=== PATIENT | male | born 1965 | race Caucasian/White ===

== ENCOUNTER 2019-05-27 13:28 | Inpatient (IN) | payer MEDICAID, OTHER ==
[~2019-05-27] VITALS: Ht 180.3 cm; Wt 117.9 kg
[~2019-05-27 13:28] MED LIST: GLIP10TA3 PO; LANTUS INSULIN SQ; METF100028 PO; [UNRECOGNIZED DRUG - REMARK]
--- NOTE | 2019-05-27 13:31 | NUR ---
Patient ambulated to bed 11. RN evaluating patient at bedside.
--- NOTE | 2019-05-27 13:35 | NUR ---
ekg performed at bedside
[2019-05-27 13:40] VITALS: BP 136/66
--- NOTE | 2019-05-27 13:40 | NUR ---
PT BIB SELF REFERRED BY PCP FOR SOB AND CP. PT REPORTS SHARP INTERMETENT LT SIDED CP AT 610. HEART RRR. ASCITES PRESENT. PT REPORTS SOB STATING "IT'S LIKE IM BLOATED AND HARD TO CATCH BREATH" AND HAS GAINED 20 POUNDS IN LAST 2 MONTHS. LUNG SOUNDS CLEAR, RR EVEN, NON-LABORED, O2 SAT AT 100% ON ROOM AIR, CAP REFIL <2 SEC. EKG DONE, VSS, ER MD TO SEE PT. MEDHX:CHIRROSIS, DM, HTN
[2019-05-27] MEDS ORDERED: NACL 0.9% 1,000 ML IV ONE (13:55)
[2019-05-27] MEDS ORDERED: PANTOPRAZOLE 40 MG INJ VIAL IVP ONE (13:55)
--- NOTE | 2019-05-27 14:00 | NUR ---
Dr. Phillips evaluating patient at bedside.
--- NOTE | 2019-05-27 14:03 | NUR ---
claims technician at bedside.
[2019-05-27] MEDS ORDERED: KETOROLAC 30 MG/ML VIAL IVP ONE (14:05)
[2019-05-27 14:30] LABS: HEMOGLOBIN 9.2 g/dL (12.0-18.0); PLATELET COUNT (AUTO) 28 K/uL (140-450); WHITE BLOOD COUNT (AUTO) 2.2 K/uL (4.8-10.8)
[2019-05-27 14:36] LABS: ANION GAP 8.6 (8-16); CARBON DIOXIDE 29.7 mmol/L (21-32); CREATININE 1.4 mg/dL (0.7-1.3); HEMATOCRIT 26.2 % (36-52); MEAN CORPUSCULAR HEMOGLOBIN 28 pg (27-31); MEAN CORPUSCULAR HGB CONC 35 g/dL (33-37); MEAN CORPUSCULAR VOLUME 78.3 fL (80-94); POTASSIUM 5.3 mmol/L (3.5-5.1); RED BLOOD CELL COUNT(AUTO) 3.34 MIL/uL (4.20-6.10); RED CELL DISTRIBUTION WIDTH 15.3 % (11.6-13.7)
[2019-05-27 14:42] LABS: TOTAL BILIRUBIN 0.7 mg/dL (0.0-1.0)
[2019-05-27 14:54] LABS: LYMPHOCYTES % (MANUAL) 14 % (20-46); MONOCYTES % (MANUAL) 2 % (5-12)
[2019-05-27 14:55] LABS: EOSINOPHILS % (MANUAL) 2 % (0-4)
[2019-05-27] MEDS ORDERED: ASPIRIN 81 MG TAB.CHEW PO ONE (15:00)
[2019-05-27] MEDS ORDERED: SODIUM POLYSTYRENE 15 GM/60 ML UDBTL PO ONE (15:05)
[2019-05-27] MEDS: NACL 0.9% 1,000 ML IV SCH (15:06)
[2019-05-27] MEDS ORDERED: ACETAMINOPHEN 325 MG TAB PO PRN (15:10)
[2019-05-27] MEDS ORDERED: ONDANSETRON 4 MG/2 ML VIAL IM/IVP PRN (15:10)
[2019-05-27] MEDS ORDERED: MORPHINE SULFATE 2 MG/ML SYR IVP PRN (15:10)
[2019-05-27] MEDS ORDERED: LISI10TA11 PO (15:32)
[2019-05-27] MEDS ORDERED: FERR-252 PO (15:32)
[2019-05-27 15:35] VITALS: BP 135/53
--- NOTE | 2019-05-27 15:35 | NUR ---
Patient will be admitted to care of [facility]. Admited to TELE W/ VSS. Will go to [id number]. Belongings list completed. Report to JOY COLLINS RN.
--- NOTE | 2019-05-27 15:35 | NUR ---
RECEIVED BEDSIDE REPORT FROM ENT PHYSICIAN BOO. PT STABLE, AWAKE, ALERT AND ORIENTED X4. NO SIGNS OF DISTRESS NOTED. DENIES PAIN OR SOB. NO REDNESS, SWELLING, OR INFLAMMATION NOTED ON IV SITE. CALL SIDDIQUI WITHIN REACH. BED IN LOWEST POSITION. SAFETY MEASURES IN PLACE. PLAN OF CARE REVIEWED.
[2019-05-27] MEDS ORDERED: DEXTROSE 50% 50 ML SYR IVP PRN (15:40)
[2019-05-27] MEDS ORDERED: NITROGLYCERIN 0.4 MG TAB SL PRN (15:40)
[2019-05-27 15:46] LABS: MAGNESIUM 1.9 mg/dL (1.8-2.4); PHOSPHORUS 4.1 mg/dL (2.5-4.9); THYROID STIMULATING HORMONE 3.3 uIU/mL (0.34-3.74)
[2019-05-27] MEDS: BLOOD GLUCOSE MONITORING 1 DEV DEV FS SCH ×2 (17:06→21:40)
[2019-05-27] MEDS: FERROUS SULFATE 325 MG TABEC PO SCH (17:06)
--- NOTE | 2019-05-27 17:11 | NUR ---
ADMINISTERED SCHEDULED MEDICATION, PT TOLERATED WELL. DR KEN AT THE BEDSIDE.
[2019-05-27] MEDS ORDERED: PRED15SY34 OP (17:51)
[2019-05-27] MEDS ORDERED: GABA800T6 PO (18:59)
--- NOTE | 2019-05-27 19:20 | NUR ---
RECEIVED BEDSIDE REPORT FROM DAY SHIFT NURSE. PATIENT IS AWAKE, ALERT, AND COOPERATIVE. RESPIRATION EVEN UNLABORED ON ROOM AIR. NO DISTRESS NOTED. SKIN IS WARM AND DRY. DENIES PAIN. PLAN OF CARE WAS DISCUSSED. ALL SAFETY MEASURES IN PLACE. BED IS AT LOW POSITION. CALL LIGHT WITHIN REACH AND VERBALIZES ITS USE. WILL CONTINUE TO MONITOR.
--- NOTE | 2019-05-27 19:29 | NUR ---
ENDORSED PT TO RN HECTOR FOR CONTINUITY OF CARE. PT STABLE.
[2019-05-27 20:00] VITALS: BP 132/61
--- NOTE | 2019-05-27 20:00 | NUR ---
INITIAL ASSESSMENT DONE. VITALS WERE TAKEN. NO DISTRESS NOTED. WILL CONTINUE TO MONITOR.
--- NOTE | 2019-05-27 20:30 | NUR ---
PATIENT IV INFILTRATED. NO ACTIVE BLEEDING SEEN. CANNULA INTACT. WILL INSERT A NEW ONE.
--- NOTE | 2019-05-27 21:00 | NUR ---
ALL SCHEDULED MEDS WERE GIVEN PER ORDER. NO ASE NOTED. WILL CONTINUE TO MONITOR.
[2019-05-27 21:32] LABS: ANION GAP 9.9 (8-16); CARBON DIOXIDE 27.3 mmol/L (21-32); CREATININE 1.5 mg/dL (0.7-1.3); POTASSIUM 5.2 mmol/L (3.5-5.1)
[2019-05-27] MEDS: SIMVASTATIN 20 MG TAB PO SCH (21:40)
[2019-05-27] MEDS: INSULIN LISPRO SLIDING SCALE 100 UNITS/ML VIAL SUBQ PRN (21:54)
--- NOTE | 2019-05-27 21:56 | NUR ---
PATIENT WANTS TO TAKE HIS GABAPENTIN MEDS THAT HE MISSED THIS MORNING. SPOKE TO DR. BREWER REGARDING PATIENT REQUEST. DR. BREWER AGREED AND INSTRUCT TO GIVE THE MORNING DOSE FOR TONIGHT. WILL ADMINISTERED 800MG GABAPENTIN.
[2019-05-27] MEDS ORDERED: GABAPENTIN 100 MG CAP ONE (22:02)
--- NOTE | 2019-05-27 22:30 | NUR ---
PATIENT IN BED WATCHING TV RESPIRATION EVEN UNLABORED ON ROOM AIR. NO DISTRESS NOTED. WILL CONTINUE TO MONITOR.
[2019-05-28] VITALS: BP 132/72
--- NOTE | 2019-05-28 | NUR ---
VITALS WERE TAKEN. PATIENT IN STABLE CONDITION. NO DISTRESS NOTED. WILL CONTINUE TO MONITOR.
[2019-05-28] MEDS ORDERED: MELATONIN 3 MG TAB PO PRN (01:35)
[2019-05-28] MEDS ORDERED: MELATONIN 3 MG TAB ONE (02:00)
--- NOTE | 2019-05-28 02:05 | NUR ---
PATIENT COULDNT FALL ASLEEP AND ASKING FOR SLEEPING AID. TALK TO DR BREWER (RESIDENT) REGARDING THE SITUATION. DR. BREWER ORDER IN 3MG MELATONIN. ADMINISTERED THE MEDS PER ORDER. WILL CONTINUE TO MONITOR.
--- NOTE | 2019-05-28 02:30 | NUR ---
INSERTED NEW IV 22G RIGHT HAND AND TOLERATING IT WELL. WILL CONTINUE TO MONITOR.
[2019-05-28 04:00] VITALS: BP 144/81
--- NOTE | 2019-05-28 04:00 | NUR ---
VITALS WERE TAKEN. PATIENT IN STABLE CONDITION. NO DISTRESS NOTED. WILL CONTINUE TO MONITOR.
[2019-05-28] MEDS: BLOOD GLUCOSE MONITORING 1 DEV DEV FS SCH ×4 (06:04→21:00)
[2019-05-28] MEDS: INSULIN LISPRO SLIDING SCALE 100 UNITS/ML VIAL SUBQ PRN ×3 (06:04→22:25)
[2019-05-28 06:07] LABS: T4 (THYROXINE) 5.8 ug/dL (4.5-12.0)
[2019-05-28] MEDS: NACL 0.9% 1,000 ML IV SCH (06:58)
--- NOTE | 2019-05-28 07:10 | NUR ---
ENDORSED PATIENT TO DAY SHIFT NURSE FOR CONTINUITY OF CARE. PATIENT IN STABLE CONDITION
--- NOTE | 2019-05-28 07:48 | NUR ---
RECEIVED BED SIDE REPORT FROM CRIME SPECIALIST RN. PT A/O X4, RIGHT HAND 22G RUNNING NS AT 60. PT DENIES CHEST PAIN. ULTRASOUND OF ABDOMEN TO BE DONE TODAY. PT ON NEUTROPENIC PRECAUTIONS. VS STABLE, ON RA IN NO RESP DISTRESS. SKIN INTACT. DENIES PAIN. WILL CONTINUE TO MONITOR.
[2019-05-28 07:49] LABS: CARBON DIOXIDE 27.6 mmol/L (21-32); CREATININE 1.5 mg/dL (0.7-1.3); POTASSIUM 4.6 mmol/L (3.5-5.1)
[2019-05-28 07:54] LABS: CHOL/HDL RATIO 2.3 (1-4.5)
[2019-05-28 07:56] LABS: HEMATOCRIT 24.3 % (36-52); HEMOGLOBIN 8.4 g/dL (12.0-18.0); MEAN CORPUSCULAR HEMOGLOBIN 28 pg (27-31); MEAN CORPUSCULAR HGB CONC 35 g/dL (33-37); MEAN CORPUSCULAR VOLUME 79.1 fL (80-94); PLATELET COUNT (AUTO) 26 K/uL (140-450); RED BLOOD CELL COUNT(AUTO) 3.07 MIL/uL (4.20-6.10)
[2019-05-28 08:05] LABS: MAGNESIUM 2.1 mg/dL (1.8-2.4); PHOSPHORUS 4.4 mg/dL (2.5-4.9)
--- NOTE | 2019-05-28 08:07 | NUR ---
PATIENT HAS BEEN SCREENED AND CATEGORIZED MODERATE NUTRITION RISK. PATIENT WILL BE SEEN WITHIN 3-5 DAYS OF ADMISSION. 05/30/19VIR[address]
[2019-05-28 08:20] LABS: PROTHROMBIN TIME 10.6 secs (10.8-13.4)
[2019-05-28 08:31] LABS: ALBUMIN 2.6 g/dL (3.4-5.0); BILIRUBIN,DIRECT 0.1 mg/dL (0.0-0.3); TOTAL BILIRUBIN 0.5 mg/dL (0.0-1.0)
--- NOTE | 2019-05-28 08:34 | NUR ---
CALLED RESIDENTS TO CONFIRM IF THEY WANT ME TO GIVE LANTUS 55 UNITS. LAST BLOOD SUGAR CHECKED AND WAS 157. RESIDENT SAID TO HOLD LANTUS.
[2019-05-28 08:39] LABS: WHITE BLOOD COUNT (AUTO) 1.7 K/uL (4.8-10.8)
[2019-05-28 08:40] LABS: LYMPHOCYTES % (MANUAL) 19 % (20-46); MONOCYTES % (MANUAL) 4 % (5-12)
[2019-05-28] MEDS ORDERED: GABAPENTIN 300 MG CAP ONE (08:53)
[2019-05-28] MEDS: ASPIRIN 81 MG TAB.CHEW PO SCH (08:58)
[2019-05-28] MEDS: FERROUS SULFATE 325 MG TABEC PO SCH ×3 (08:58→16:52)
[2019-05-28] MEDS: LISINOPRIL 10 MG TAB PO SCH (08:59)
[2019-05-28] MEDS: GABAPENTIN 200 MG, GABAPENTIN 600 MG PO SCH ×6 (09:00→16:52)
[2019-05-28] MEDS ORDERED: ASPIRIN 81 MG TAB.CHEW PO SCH (09:00)
[2019-05-28] MEDS ORDERED: INSULIN LANTUS 100 UNITS/ML 10 ML VIAL SUBQ SCH (09:00)
[2019-05-28] MEDS ORDERED: GABAPENTIN 100 MG CAP PO SCH (09:00)
[2019-05-28] MEDS: prednisoLONE 1% OP 5 ML BTL LEFT EYE SCH ×4 (09:01→20:57)
--- NOTE | 2019-05-28 09:18 | NUR ---
GAVE PT AM MEDS. URINE SPECIMEN CUP AT BEDSIDE. WILL CONTINUE TO MONITOR.
[2019-05-28 10:29] VITALS: BP 133/70
[2019-05-28 11:07] LABS: APPEARANCE,URINE CLEAR (CLEAR); BILIRUBIN,URINE NEGATIVE (NEGATIVE); BLOOD, URINE NEGATIVE (NEGATIVE); COLOR,URINE YELLOW (YELLOW); LEUKOCYTE ESTERASE ,URINE NEGATIVE (NEGATIVE); NITRITE, URINE NEGATIVE (NEGATIVE); UGLUCOSE TRACE (NEGATIVE)
[2019-05-28 11:13] LABS: BARBITURATE, URINE NEG. ng/ml (NEG <=200); BENZODIAZEPINE, URINE NEG. ng/mL (NEG <=200); CANNABINOID, URINE NEG. ng/mL (NEG <=50); COCAINE, URINE NEG. ng/mL (NEG <=300); OPIATE, URINE NEG. ng/mL (NEG <=2000); PHENCYCLIDINE SCREEN,URINE NEG. ng/mL (NEG <=25)
--- NOTE | 2019-05-28 12:21 | NUR ---
SUGAR 231. PT NPO CURRENTLY D/T US ABDOMEN TO BE COMPLETED. WILL NOT GIVE INSULIN COVERAGE AT THIS TIME.
--- NOTE | 2019-05-28 13:56 | NUR ---
DISCHARGE PLANNING [facility] Patient: Grady Michelle : 1965 Age/Sex: 54/M Unit#: [id number] Room/Bed: 106/A User: Yeimi Boone CM Date: 05/28/19 13:45 Type: CM: Discharge Planning Basic Screen: Yes Name: Yuliet Sparrow Relationship: Significant other Pre-Admission Living Arrangements: Other Other: Home Prior ADL Independent Healthcare Decision Maker: Patient Advance Directive No Physician Orders for Life Sustaining Treatment Form No Patient/Family Have Educational Needs No Information Taught: Advance Directive Instruction Given: Overall info for AD Person Taught: Patient Teaching Tools: Verbal Factors Affecting Learning: None Participation Level: Active Evaluation: Demonstrate Understanding Discipline: Case Mgt/Social Svcs Tentative Discharge Plan/Destination: No Needs Identified Will require assistance post discharge: No Referred to Social Media Marketing Manager: No Tentative Discharge Plan Summary: Pt to return home with family. Patient reports he lives with significant other. Pt receives medical care from [facility]. Pt was recently diagnosed with depression by a psychiatrist in [place]. Pt unable to recall the name. Pt stated has an appointment to follow-up fpr medication and counseling. Pt indicated he currently doesn't smoke, drink or use any drugs. Pt quit about 4 years ago. No needs identified. Signature: Yeimi Boone [facility] ext [phone] Date: May 28, 2019 Time: 13:50
--- NOTE | 2019-05-28 14:30 | NUR ---
PT NPO CURRENTLY HAVING US OF ABDOMEN. CALLED FOR A LATE LUNCH TRAY. PT IN NO DISTRESS, WILL CONTINUE TO MONITOR.
[2019-05-28 17:10] VITALS: BP 124/61
--- NOTE | 2019-05-28 18:05 | NUR ---
ECHO COMPLETED. PT REQUESTED TO SPEAK WITH DOCTOR. NOTIFIED .
--- NOTE | 2019-05-28 18:38 | NUR ---
IV FOUND LEAKING. WILL TRY TO RESTART NEW ONE.
--- NOTE | 2019-05-28 19:23 | NUR ---
IV TAKEN OUT. NO BLEEDING NOTED. PT STATED HE WANTED TO LEAVE AMA. PRINTED FORM. NOTIFIED. ENDORSED TO CLIENT APPLICATION SUPPORT ENGINEER RN. PT STABLE.
--- NOTE | 2019-05-28 19:30 | NUR ---
DR ABDULLAHI SPOKE WITH THE PATIENT AND EXPLAINED THE RISKS OF SIGNING AMA. PATIENT VERBALIZED UNDERSTANDING AND DECIDED TO STAY FOR THE NIGHT
--- NOTE | 2019-05-28 19:30 | NUR ---
RECEIVED PATIENT REPORT AT BEDSIDE. PATIENT IS AWAKE, ALERT AND ORIENTED. PATIENT ON ROOM AIR. CLEAR LUNG SOUNDS. NO SOB. PATIENT DENIES ANY CHEST PAIN OR DISCOMFORT. BED LOWERED WITH CALL LIGHT WITHIN REACH. WILL CONTINUE TO MONITOR
[2019-05-28 20:00] VITALS: BP 131/72
--- NOTE | 2019-05-28 20:00 | NUR ---
NO IV LINE IN PLACE. EXPLAINED TO THE PATIENT THAT HE HAS FLUIDS ORDERED AND THAT HE NEEDS AN IV LINE IN PLACE FOR MEDICATION ADMINISTRATION IN CASE OF AN EMERGENCY. PT VERBALIZED UNDERSTANDING BUT STATES THAT HE WILL BE LEAVING TOMORROW AND HE DOES NEED TO HAVE IV FLUIDS AT THIS TIME.
[2019-05-28] MEDS: SIMVASTATIN 20 MG TAB PO SCH (22:23)
[2019-05-29] VITALS: BP 125/64
[2019-05-29] MEDS: NACL 0.9% 1,000 ML IV SCH (00:26)
--- NOTE | 2019-05-29 02:52 | NUR ---
PT ASLEEP IN BED. NO S/S OF DISTRESS NOTED
[2019-05-29 06:33] VITALS: BP 145/63
[2019-05-29] MEDS: BLOOD GLUCOSE MONITORING 1 DEV DEV FS SCH (06:48)
[2019-05-29] MEDS: INSULIN LISPRO SLIDING SCALE 100 UNITS/ML VIAL SUBQ PRN (06:53)
--- NOTE | 2019-05-29 07:10 | NUR ---
RECEIVED BEDSIDE REPORT FROM SHAYLA ZAYAS. PT STABLE, AWAKE, ALERT AND ORIENTED X4. NO SIGNS OF DISTRESS NOTED. DENIES PAIN OR SOB. NO REDNESS, SWELLING, OR INFLAMMATION NOTED ON IV SITE. CALL SIDDIQUI WITHIN REACH. BED IN LOWEST POSITION. SAFETY MEASURES IN PLACE. PLAN OF CARE REVIEWED.
[2019-05-29 08:00] VITALS: BP 132/67
[2019-05-29 08:24] LABS: ANION GAP 10.4 (8-16); CARBON DIOXIDE 26.5 mmol/L (21-32); CREATININE 1.2 mg/dL (0.7-1.3); POTASSIUM 4.9 mmol/L (3.5-5.1)
--- NOTE | 2019-05-29 08:25 | NUR ---
INFORMED DR HENSLEY THAT PT WANTS TO LEAVE AMA. MD WILL SEE PATIENT.
[2019-05-29 08:40] LABS: HEMATOCRIT 24.3 % (36-52); HEMOGLOBIN 8.6 g/dL (12.0-18.0); MEAN CORPUSCULAR HEMOGLOBIN 28 pg (27-31); MEAN CORPUSCULAR HGB CONC 35 g/dL (33-37); MEAN CORPUSCULAR VOLUME 78.9 fL (80-94); PLATELET COUNT (AUTO) 26 K/uL (140-450); RED BLOOD CELL COUNT(AUTO) 3.08 MIL/uL (4.20-6.10); RED CELL DISTRIBUTION WIDTH 15.5 % (11.6-13.7)
--- NOTE | 2019-05-29 08:44 | NUR ---
DR HENSLEY AT THE BEDSIDE TO SPEAK WITH PATIENT REGARDING THE CONSEQUENCES OF LEAVING AMA. PT SIGNED AMA FORM.
[2019-05-29] MEDS: prednisoLONE 1% OP 5 ML BTL LEFT EYE SCH (08:48)
[2019-05-29] MEDS: LISINOPRIL 10 MG TAB PO SCH (08:48)
[2019-05-29] MEDS: FERROUS SULFATE 325 MG TABEC PO SCH (08:48)
[2019-05-29] MEDS: ASPIRIN 81 MG TAB.CHEW PO SCH (08:49)
[2019-05-29] MEDS: GABAPENTIN 200 MG, GABAPENTIN 600 MG PO SCH ×2 (08:49)
--- NOTE | 2019-05-29 08:51 | NUR ---
PATIENT REFUSED SCHEDULED GABAPENTIN, ADMINISTERED ALL OTHER SCHEDULED MEDICATIONS, PT TOLERATED WELL. ADMINISTERED PRN TYLENOL FOR 5/10 HEADACHE.
--- NOTE | 2019-05-29 09:03 | NUR ---
AMA FORM WAS SIGNED BY PATIENT. PATIENT DID NOT HAVE IV ACCESS, PT REFUSED. DR HENSLEY INSTRUCTED PATIENT REGARDING CONSEQUENCES OF LEAVING AMA. PT VERBALIZED UNDERSTANDING. PER PT, "I'M FEELING GOOD ALREADY, THERE'S NO POINT OF ME STAYING HERE". PT STABLE, AAOX4, COMMUNICATES EFFICIENTLY WITH STAFF. PT WILL BE DRIVING HIMSELF BACK HOME. PT AMBULATED OUT OF THE UNIT WITH STEADY GAIT.
[2019-05-29 09:12] LABS: TRANSFERRIN 252 mg/dL (200-370)
[2019-05-29 09:18] LABS: PHOSPHORUS 4.2 mg/dL (2.5-4.9)
[2019-05-29 09:34] LABS: WHITE BLOOD COUNT (AUTO) 1.7 K/uL (4.8-10.8)
[2019-05-29 09:35] LABS: LYMPHOCYTES % (MANUAL) 5 % (20-46); MONOCYTES % (MANUAL) 3 % (5-12)
[2019-05-29 15:10] LABS: FERRITIN 52 ng/mL (30-400); FOLIC ACID > 20.00 ng/mL (>3.0)
[2019-05-29] MEDS ORDERED: METOPROLOL 25 MG TAB PO SCH (21:00)
== END 2019-05-29 09:28 | disposition left against medical advice (07) | DRG 243 ==
LOC: MED 13:28 → MTU 15:09
PROVIDERS: ADMIT General Practice; ATTEND General Practice
DX: K21.9 Gastro-esophageal reflux disease without esophagitis (principal); N17.0 Acute kidney failure with tubular necrosis; D61.818 Other pancytopenia; E44.0 Moderate protein-calorie malnutrition; E11.319 Type 2 diabetes mellitus with unspecified diabetic retinopathy without macular edema; E11.40 Type 2 diabetes mellitus with diabetic neuropathy, unspecified; E11.9 Type 2 diabetes mellitus without complications; D72.825 Bandemia; M94.0 Chondrocostal junction syndrome [Tietze]; I10 Essential (primary) hypertension; K74.60 Unspecified cirrhosis of liver; E61.1 Iron deficiency; E87.5 Hyperkalemia; B19.20 Unspecified viral hepatitis C without hepatic coma; Z68.36 Body mass index [BMI] 36.0-36.9, adult; Z82.49 Family history of ischemic heart disease and other diseases of the circulatory system; Z84.89 Family history of other specified conditions; Z53.21 Procedure and treatment not carried out due to patient leaving prior to being seen by health care provider
CPT/HCPCS: 36415; 71045; 76700; 80048; 80053; 80076; 80305; 81003; 82607; 82728; 82746; 82948; 82977; 83036; 83540; 83605; 83735; 83880; 84100; 84436; 84443; 84484; 85025; 85045; 85610; 87081; 93005; 93925; 96361; 96374; 96375; 99285; C9113; J1815; J1885; J7030; Q0092